=== PATIENT | male | born 1960 | race Caucasian/White ===

== ENCOUNTER 2017-12-21 08:39 | Emergency (ER) | payer BC, OTHER ==
[2017-12-21] MEDS ORDERED: ceFAZolin 1 GM in Sodium Chloride 0.9% 50 ML IV ONE (08:46)
[2017-12-21] MEDS ORDERED: Diphtheria,Pertussis(Acell),Tetanus Vaccine 0.5 ML SDV IM ONE (08:51)
[2017-12-21] MEDS ORDERED: ceFAZolin 1 GM in Premix Bag 1 BAG IV ONE (09:00)
--- NOTE | 2017-12-21 09:05 | EDM.PDOC ---
ED HPI GENERAL MEDICAL PROBLEM - General Chief Complaint: Upper Extremity Injury/Pain Stated Complaint: LEFT HAND MANGLED Time Seen by Provider: 12/21/17 08:50 Source of Information: Reports: Patient History Limitations: Reports: No Limitations - History of Present Illness INITIAL COMMENTS - FREE TEXT/NARRATIVE: 57-year-old male has a significant injury to his left hand. He was at work when his left hand got crushed between a forklift and another hard immovable object. He has some macerated crush injury to the palmar surface of the left hand just proximal to the thumb. It's an open fracture, no significant bleeding, the thumb is numb and he is unable to move it. Onset: Sudden Duration: Hour(s): (Within the last hour) Location: Reports: Upper Extremity, Left Severity: Severe Associated Symptoms: Reports: No Other Symptoms Left Hand Pain Score (Numeric/FACES): 2 - Related Data Allergies Allergy/AdvReac Type Severity Reaction Status Date / Time No Known Allergies Allergy Verified 12/21/17 08:50 Home Meds: Home Meds Lisinopril 1 tab PO DAILY 12/21/17 [History] Past Medical History Cardiovascular History: Reports: Hypertension - Infectious Disease History Infectious Disease History: Reports: Chicken Pox, Mumps Social & Family History - Tobacco Use Smoking Status *Q: Never Smoker Second Hand Smoke Exposure: No - Caffeine Use Caffeine Use: Reports: Soda - Alcohol Use Days Per Week of Alcohol Use: 7 Number of Drinks Per Day: 2 Total Drinks Per Week: 14 - Recreational Drug Use Recreational Drug Use: No Review of Systems - Review of Systems Review Of Systems: See Below Constitutional: Denies: Fever Respiratory: Denies: Shortness of Breath Cardiovascular: Denies: Chest Pain GI/Abdominal: Denies: Abdominal Pain Neurological: Reports: Paresthesia (Numbness of the left thumb) ED EXAM, GENERAL - Physical Exam Exam: See Below Exam Limited By: No Limitations General Appearance: Alert, Anxious, Mild Distress Head: Atraumatic Respiratory/Chest: No Respiratory Distress Extremities: Other (Exam is otherwise limited to the left. Patient has an open wound on the palmar surface of the left hand proximal to the thumb. There is obvious displacement of the distal bony structures laterally. Total open laceration area is 4 by 4 cm. ) Course - Vital Signs Last Recorded V/S: Last Vital Signs Temp 95 F L 12/21/17 08:49 Pulse 70 12/21/17 08:49 Resp 16 12/21/17 08:49 BP 114/73 12/21/17 08:49 Pulse Ox 97 12/21/17 08:49 - Orders/Labs/Meds Orders: Active Orders 24 hr Category Date Time Status Vaccines to be Administered [RC] PER UNIT ROUTINE Care 12/21/17 08:52 Active Hand 2V Lt [CR] Stat Exams 12/21/17 08:46 Taken Meds: Medications Discontinued Medications Generic Name Dose Route Start Last Admin Trade Name Salomon PRN Reason Stop Dose Admin Diphtheria/Tetanus/Acell Pertussis 0.5 ml 12/21/17 08:51 12/21/17 09:00 Adacel IM 12/21/17 08:52 0.5 ml .ONCE ONE Administration Cefazolin Sodium/Dextrose 1 gm 50 mls @ 100 mls/hr 12/21/17 09:00 12/21/17 09 :15 / Premix IV 12/21/17 09:29 100 mls/hr ONETIME ONE Administration - Re-Assessments/Exams Free Text/Narrative Re-Assessment/Exam: 12/21/17 09:22 X-ray showed a comminuted fracture of the metacarpal proximal to the MP joint of the thumb on the left hand. Patient was wrapped in sterile gauze, 1 g of IV Ancef was given a tetanus vaccination. [facility] accepted the patient an urgent transfer for hand surgery requiring revascularization. Departure - Departure Time of Disposition: 09:48 Disposition: DC/Tfer to [place] [id number] Condition: Fair Clinical Impression: Open fracture of metacarpal bone of left hand Qualifiers: Encounter type: initial encounter Metacarpal bone: first Metacarpal location: shaft Fracture alignment: displaced Qualified Code(s): S62.242B - Displaced fracture of shaft of first metacarpal bone, left hand, initial encounter for open fracture - Discharge Information Referrals: PCP,None [Primary Care Provider] - Forms: ED Department Discharge Care Plan Goals: Patient is to be urgently transported to [facility] for specialized hand surgery with revascularization. - My Orders Last 24 Hours: My Active Orders 12/21/17 08:46 Hand 2V Lt [CR] Stat 12/21/17 08:52 Vaccines to be Administered [RC] PER UNIT ROUTINE - Assessment/Plan Last 24 Hours: My Active Orders 12/21/17 08:46 Hand 2V Lt [CR] Stat 12/21/17 08:52 Vaccines to be Administered [RC] PER UNIT ROUTINE
--- NOTE | 2017-12-22 09:09 | CR ---
Hand 2V Lt CLINICAL HISTORY: Trauma FINDINGS: Patient has a comminuted displaced fracture of the first metacarpal. The this does not exte nd into the articular cortex. 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 Impression: Moderately comminuted displaced fracture of the first metacarpal
== END 2017-12-21 09:51 ==
LOC: JP.ED 08:39
DX: S62.242B Displaced fracture of shaft of first metacarpal bone, left hand, initial encounter for open fracture (principal); Z23 Encounter for immunization; I10 Essential (primary) hypertension; Z79.899 Other long term (current) drug therapy; W23.0XXA Caught, crushed, jammed, or pinched between moving objects, initial encounter
CPT/HCPCS: 73120; 90471; 90715; 96365; 99284; J0690

== ENCOUNTER 2020-11-15 09:51 | Emergency (ER) | payer BC ==
--- NOTE | 2020-11-15 10:01 | EDM.PDOC ---
ED HPI GENERAL MEDICAL PROBLEM - General Chief Complaint: Syncope Stated Complaint: MEDICAL VIA [facility] Time Seen by Provider: 11/15/20 09:51 Source of Information: Reports: Patient, EMS History Limitations: Reports: No Limitations - History of Present Illness INITIAL COMMENTS - FREE TEXT/NARRATIVE: 60-year-old male was on the [facility] [place] walking his dog, does not remember any symptoms but was found unresponsive on the side of the [place]. He has no symptoms currently but was postictal on arrival by EMS, they tried to do an EKG and he was initially uncooperative but now he is back to his baseline. He has a remote history of a seizure close to 10 years ago that was felt to be a stimulant or caffeine induced, he was hypertensive at the scene and has had antihypertensive medication in the past but stopped it and does not regularly see a doctor. He feels healthy, he looks fit. He has some small contusions on his lower lip but no other injury. Onset: Unknown/Unsure Associated Symptoms: Reports: Confusion (Initial confusion has cleared) - Related Data Allergies Allergy/AdvReac Type Severity Reaction Status Date / Time No Known Allergies Allergy Verified 11/15/20 09:59 Past Medical History Cardiovascular History: Reports: Hypertension - Infectious Disease History Infectious Disease History: Reports: Chicken Pox, Mumps Social & Family History - Caffeine Use Caffeine Use: Reports: Soda ED ROS GENERAL - Review of Systems Review Of Systems: See Below Constitutional: Denies: Fever, Chills, Malaise HEENT: Reports: Other (Small contusions on his lower lip are relatively asymptomatic at this time). Denies: Vision Change Respiratory: Denies: Shortness of Breath, Cough Cardiovascular: Denies: Chest Pain GI/Abdominal: Denies: Abdominal Pain, Diarrhea, Nausea, Vomiting : Reports: No Symptoms. Denies: Incontinence Musculoskeletal: Reports: No Symptoms, Other (Significant left thumb injury 3 years ago is healed nicely) Skin: Denies: Bruising Neurological: Reports: Confusion (Confusion initially, has cleared), Seizure (Possibly seizure or syncope, unknown). Denies: Dizziness, Headache ED EXAM, GENERAL - Physical Exam Exam: See Below Exam Limited By: No Limitations General Appearance: Alert, No Apparent Distress Eye Exam: Bilateral Eye: EOMI, Normal Inspection Throat/Mouth: Other (2 small contusions on the lower lip inner mucosa are present, no dental injury or large laceration, no tongue injury) Head: Atraumatic, Normocephalic. No: Facial Swelling Neck: Supple, Non-Tender Respiratory/Chest: No Respiratory Distress, Lungs Clear Cardiovascular: Regular Rate, Rhythm. No: Extra Beats GI/Abdominal: Non-Tender Extremities: Normal Inspection. No: Pedal Edema Neurological: Alert, Oriented, No Motor/Sensory Deficits Psychiatric: Normal Affect, Normal Mood Skin Exam: Warm, Dry Course - Vital Signs Last Recorded V/S: Last Vital Signs Temp 98.0 F 11/15/20 10:06 Pulse 84 11/15/20 10:48 Resp 16 11/15/20 10:48 BP 166/104 H 11/15/20 10:48 Pulse Ox 99 11/15/20 10:48 - Orders/Labs/Meds Labs: Laboratory Tests 11/15/20 11/15/20 11/15/20 Range/Units 10:09 10:09 10:42 WBC 4.8 (4.5-11.0) K/uL RBC 4.47 (4.30-5.90) M/uL Hgb 13.7 (12.0-15.0) g/dL Hct 40.1 (40.0-54.0) % MCV 90 (80-98) fL MCH 31 (27-31) pg MCHC 34 (32-36) % Plt Count 215 (150-400) K/uL Neut % (Auto) 56.0 (36-66) % Lymph % (Auto) 29.5 (24-44) % [place] % (Auto) 10.8 H (2-6) % Eos % (Auto) 2.7 (2-4) % Baso % (Auto) 1.0 (0-1) % Sodium 141 (140-148) mmol/L Potassium 3.5 L (3.6-5.2) mmol/L Chloride 103 (100-108) mmol/L Carbon Dioxide 24 (21-32) mmol/L Anion Gap 17.5 H (5.0-14.0) mmol/L BUN 9 (7-18) mg/dL Creatinine 0.9 (0.8-1.3) mg/dL Est Cr Clr Drug Dosing 93.55 mL/min Estimated GFR (MDRD) > 60 (>60) Glucose 119 H (74-106) mg/dL Calcium 8.9 (8.5-10.1) mg/dL Total Bilirubin 0.9 (0.2-1.0) mg/dL AST 28 (15-37) U/L ALT 25 (12-78) U/L Alkaline Phosphatase 44 L (46-116) U/L Total Protein 7.0 (6.4-8.2) g/dL Albumin 3.6 (3.4-5.0) g/dL Globulin 3.4 (2.3-3.5) g/dL Albumin/Globulin Ratio 1.1 L (1.2-2.2) Urine Color Yellow (YELLOW) Urine Appearance Clear (CLEAR) Urine pH 5.5 (5.0-8.0) Ur Specific [place] 1.025 (1.008-1.030) Urine Protein 100 H (NEGATIVE) mg/dL Urine Glucose (UA) Negative (NEGATIVE) mg/dL Urine Ketones Negative (NEGATIVE) mg/dL Urine Occult Blood Negative (NEGATIVE) Urine Nitrite Negative (NEGATIVE) Urine Bilirubin Negative (NEGATIVE) Urine Urobilinogen 0.2 (0.2-1.0) EU/dL Ur Leukocyte Esterase Negative (NEGATIVE) Urine RBC Not seen (0-5) Urine WBC Not seen (0-5) Ur Epithelial Cells Not seen Amorphous Sediment Not seen Urine Bacteria Not seen Urine Mucus Few Urine Other Urine Opiates Screen (NEGATIVE) Ur Oxycodone Screen (NEGATIVE) Urine Methadone Screen (NEGATIVE) Ur Propoxyphene Screen (NEGATIVE) Ur Barbiturates Screen (NEGATIVE) Ur Tricyclics Screen (NEGATIVE) Ur Phencyclidine Scrn (NEGATIVE) Ur Amphetamine Screen (NEGATIVE) U Methamphetamines Scrn (NEGATIVE) Urine MDMA Screen (NEGATIVE) U Benzodiazepines Scrn (NEGATIVE) U Cocaine Metab Screen (NEGATIVE) U Marijuana (THC) Screen (NEGATIVE) 11/15/20 Range/Units 10:42 WBC (4.5-11.0) K/uL RBC (4.30-5.90) M/uL Hgb (12.0-15.0) g/dL Hct (40.0-54.0) % MCV (80-98) fL MCH (27-31) pg MCHC (32-36) % Plt Count (150-400) K/uL Neut % (Auto) (36-66) % Lymph % (Auto) (24-44) % [place] % (Auto) (2-6) % Eos % (Auto) (2-4) % Baso % (Auto) (0-1) % Sodium (140-148) mmol/L Potassium (3.6-5.2) mmol/L Chloride (100-108) mmol/L Carbon Dioxide (21-32) mmol/L Anion Gap (5.0-14.0) mmol/L BUN (7-18) mg/dL Creatinine (0.8-1.3) mg/dL Est Cr Clr Drug Dosing mL/min Estimated GFR (MDRD) (>60) Glucose (74-106) mg/dL Calcium (8.5-10.1) mg/dL Total Bilirubin (0.2-1.0) mg/dL AST (15-37) U/L ALT (12-78) U/L Alkaline Phosphatase (46-116) U/L Total Protein (6.4-8.2) g/dL Albumin (3.4-5.0) g/dL Globulin (2.3-3.5) g/dL Albumin/Globulin Ratio (1.2-2.2) Urine Color (YELLOW) Urine Appearance (CLEAR) Urine pH (5.0-8.0) Ur Specific [place] (1.008-1.030) Urine Protein (NEGATIVE) mg/dL Urine Glucose (UA) (NEGATIVE) mg/dL Urine Ketones (NEGATIVE) mg/dL Urine Occult Blood (NEGATIVE) Urine Nitrite (NEGATIVE) Urine Bilirubin (NEGATIVE) Urine Urobilinogen (0.2-1.0) EU/dL Ur Leukocyte Esterase (NEGATIVE) Urine RBC (0-5) Urine WBC (0-5) Ur Epithelial Cells Amorphous Sediment Urine Bacteria Urine Mucus Urine Other Urine Opiates Screen Negative (NEGATIVE) Ur Oxycodone Screen Negative (NEGATIVE) Urine Methadone Screen Negative (NEGATIVE) Ur Propoxyphene Screen Negative (NEGATIVE) Ur Barbiturates Screen Negative (NEGATIVE) Ur Tricyclics Screen Negative (NEGATIVE) Ur Phencyclidine Scrn Negative (NEGATIVE) Ur Amphetamine Screen Negative (NEGATIVE) U Methamphetamines Scrn Negative (NEGATIVE) Urine MDMA Screen Negative (NEGATIVE) U Benzodiazepines Scrn Negative (NEGATIVE) U Cocaine Metab Screen Negative (NEGATIVE) U Marijuana (THC) Screen Negative (NEGATIVE) - Re-Assessments/Exams Free Text/Narrative Re-Assessment/Exam: 11/15/20 10:14 CT the head without contrast was ordered as well as a CBC, CMP, UA and urine drug screen. 11/15/20 10:[address] was negative and CBC and CMP were reassuring, urine is still pending. Patient now admits that he drinks daily, many beers after work and is willing to cut back on his alcohol intake. He also remembers feeling "lightheaded" in the park prior to this episode. This may be seizure related to the alcohol abuse or possibly syncope. 11/15/20 12:20 UA and urine drug screen are negative. Patient is going to try to decrease and stop alcohol use and abuse, and follow-up with a primary provider after some regular blood pressure checks. Departure - Departure Time of Disposition: 11:15 Disposition: Home, Self-Care 01 Clinical Impression: Essential hypertension, Seizure-like activity - Discharge Information Instructions: Seizure, Adult, [id number], Hypertension, Adult Referrals: PCP,None [Primary Care Provider] - Forms: ED Department Discharge Care Plan Goals: Decrease alcohol intake, a good goal would be to stop alcohol completely. Follow-up with your primary provider in the next 1 to 2 weeks and consider daily blood pressure checks to document a trend. Sepsis Event Note (ED) - Focused Exam Vital Signs: Vital Signs Temp Pulse Resp BP Pulse Ox 11/15/20 10:48 84 16 166/104 H 99 11/15/20 10:08 94 16 169/110 H 98 11/15/20 10:06 98.0 F 101 H 16 169/110 H 98 11/15/20 09:53 98.0 F 101 H 16 169/110 H 98
--- NOTE | 2020-11-15 11:25 | CT ---
Head wo Cont CLINICAL HISTORY: Possible seizure COMPARISON: None TECHNIQUE: Transverse scans were obtained from the base of the skull through the vertex without IV contrast on a multislice, multidetector CT scanner. Auto dosage reduction and iterative reconstruction techniques employed. FINDINGS: No focal abnormal parenchymal density is identified. There is no mass effect, hemorrhage, or extraaxial collection. The basal cisterns and sulci over the convexities are mildly prominent. The ventricles are normal for age. IMPRESSION: No acute intracranial process seen
== END 2020-11-15 11:15 | disposition home or self-care (01) ==
LOC: JP.ED 09:51
DX: R56.9 Unspecified convulsions (principal); S00.531A Contusion of lip, initial encounter; I10 Essential (primary) hypertension; X58.XXXA Exposure to other specified factors, initial encounter
CPT/HCPCS: 36415; 70450; 70450-26; 80053; 80305-QW; 81001; 85025; 99285-25